=== PATIENT | female | born 1975 | race Hispanic/Latino ===

== ENCOUNTER 2022-07-14 10:30 | Emergency (ER) | payer SELFPAY ==
[2022-07-14 10:59] LABS: #Eosinphils 0.2 thou/uL (0.0-0.7); #Lymphocytes 1.8 thou/uL (1.20-3.40); #Monocytes 0.4 thou/uL (0.11-0.59); #Neutrophils 4.3 thou/uL (1.40-6.50); %Basophils 0.4 % (0.0-1.0); %Eosinophils 2.6 % (0.0-10.0); %Lymphocytes 26.4 % (21.0-51.0); %Monocytes 6.3 % (0.0-10.0); %Neutrophils 64.3 % (42.0-75.0); Hemoglobin 15.4 g/dL (12.0-16.0); Mean Corpuscular Hemoglobin 31.2 pg (27.0-31.0); Mean Corpuscular Volume 91.7 fL (78.0-98.0); Mean Platelet Volume 7.4 fL (7.4-10.4); Platelet Count 243 thou/uL (130-400); Red Blood Cell (RBC) Count 4.92 mill/uL (4.20-5.40); White Blood Cell (WBC) Count 6.7 thou/uL (4.8-10.8)
[2022-07-14 11:15] LABS: ALT (SGPT) 29 U/L (8-55); AST (SGOT) 23 U/L (5-34); Albumin 4.2 g/dL (3.5-5.0); Alkaline Phosphatase 77 U/L (40-110); Anion Gap 16 mmol/L (10-20); BUN (Urea Nitrogen) 10 mg/dL (7.0-18.7); Bilirubin, Total 0.5 mg/dL (0.2-1.2); Calc. Creatinine Clearance 0 mL/min (70-130); Calcium 8.8 mg/dL (7.8-10.44); Carbon Dioxide 20 mmol/L (22-29); Chloride 107 mmol/L (98-107); Estimated GFR 83; Globulin 2.8 g/dL (2.4-3.5); Glucose 126 mg/dL (70-105); Potassium 3.6 mmol/L (3.5-5.1); Sodium 139 mmol/L (136-145)
[2022-07-14] MEDS ORDERED: Morphine 4 MG/ML VIAL ONE (12:16)
[2022-07-14] MEDS ORDERED: Ondansetron PF 4 MG/2 ML Vial ONE (12:17)
[2022-07-14 12:32] LABS: BHCG - Serum Negative (NEGATIVE); Pregs Control Background? CLEAR/WHITE (CLR/WHITE); Pregs Control Bar Appear? YES (CONTROL BAR)
[2022-07-14 13:19] LABS: Bacteria/HPF 3+ HPF (None Seen); Bilirubin Negative (Negative); Blood, Urine 3+ (Negative); Calcium Oxalate Crystals 2+ HPF (None Seen); Clarity Turbid (Clear); Glucose, Urine (Dipstick) Normal (Negative); Ketone, Urine Negative (Negative); Leukocyte 25 Leu/uL (Negative); Nitrite 2+ (Negative); Protein, Urine (Dipstick) 30 mg/dL (Neg-Trace); RBC/HPF 21-50 HPF (0-3); Specific Gravity, Urine 1.034 (1.002-1.036)
[2022-07-14] MEDS ORDERED: Iopamidol-370 76% 500 ML 1 ML ONE (14:06)
== END 2022-07-14 14:25 | disposition home or self-care (01) ==
LOC: ERS 10:30
DX: N39.0 Urinary tract infection, site not specified (principal); F17.210 Nicotine dependence, cigarettes, uncomplicated
CPT/HCPCS: 36415; 74177; 80053; 81003; 81015; 84703; 85025; 94760; 96361; 96374; 96375; J2270; J2405; Q9967

== ENCOUNTER 2025-06-25 16:22 | Outpatient (CLI) | payer SELFPAY | END 2025-06-25 16:23 | disposition home or self-care (01) | LOC: BICRAD 16:22 | PROVIDERS: ATTEND Nurse Practitioner Family | DX: S99.911A Unspecified injury of right ankle, initial encounter (principal) ==